=== PATIENT | male | born 1945 | race Caucasian/White ===

== ENCOUNTER 2020-01-06 08:06 | Inpatient (IN) | payer OTHER ==
[~2020-01-06] VITALS: Ht 180.3 cm; Wt 124.0 kg
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
[2020-01-06] MEDS ORDERED: MORPHINE SULFATE 4 MG/ML VIAL. IV ONE (09:45)
[2020-01-06 10:04] LABS: BASO % 0 % (0-3); EOS # 0.1 x10^3/uL (0.0-0.7); EOS % 1 % (0-3); HEMATOCRIT 46.5 % (39.0-53.0); HEMOGLOBIN 15.6 g/dL (13.0-17.5); LYMPH % 9 % (24-48); MEAN CORPUSCULAR HEMOGLOBIN 30 pg (25-35); MEAN CORPUSCULAR HGB CONC 34 g/dL (31-37); MEAN CORPUSCULAR VOLUME 88 fL (79-100); MONO % 10 % (0-9); NEUT # 8.2 x10^3/uL (1.8-7.7); NEUT % 80 % (31-73); PLATELET COUNT 160 x10^3/uL (140-400); RED BLOOD COUNT 5.29 x10^6/uL (4.30-5.70); RED CELL DISTRIBUTION WIDTH 14.8 % (11.5-14.5); WHITE BLOOD COUNT 10.3 x10^3/uL (4.0-11.0)
[2020-01-06 10:24] LABS: CALCIUM 8.8 mg/dL (8.5-10.1); CREATININE 1.1 mg/dL (0.7-1.3); GFR 65.6; POTASSIUM 4.1 mmol/L (3.5-5.1)
[2020-01-06 10:30] LABS: ALBUMIN 3.8 g/dL (3.4-5.0); ALBUMIN/GLOBULIN RATIO 1.3 (1.0-1.7); TOTAL BILIRUBIN 0.5 mg/dL (0.2-1.0); TOTAL PROTEIN 6.7 g/dL (6.4-8.2)
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
[2020-01-06] MEDS ORDERED: IV NORMAL SALINE 500ML BAG 500 ML IV ONE (12:00)
[2020-01-06] MEDS ORDERED: CONTRAST GIVEN. MC PRN (12:15)
[2020-01-06] MEDS ORDERED: IOHEXOL 300 MG/ML 100ML VIAL. IV ONE (12:30)
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
[2020-01-06 14:10] VITALS: BP 150/94
--- NOTE | 2020-01-06 14:42 | EKG ---
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
[2020-01-06] MEDS ORDERED: BISO1TAB44 PO (15:36)
[2020-01-06] MEDS ORDERED: CLON0.12 PO (15:36)
[2020-01-06] MEDS ORDERED: TRAZ-118 PO (15:36)
[2020-01-06] MEDS ORDERED: SERT100T PO (15:36)
[2020-01-06] MEDS: oxyCODONE/APAP 5/325 1 TAB TABLET PO PRN ×2 (17:35→22:19)
[2020-01-06] MEDS: IV NORMAL SALINE 1000ML BAG 1,000 ML IV SCH (17:36)
[2020-01-06 19:01] VITALS: BP 165/77
[2020-01-06] MEDS: fentaNYL PF VIAL 100 MCG/2 ML VIAL IVP PRN ×2 (19:05→22:20)
[2020-01-06] MEDS: traZODone 50 MG TABLET. PO SCH (22:19)
[2020-01-06 22:46] VITALS: BP 128/83
[2020-01-07] VITALS (9 sets, daily range): BP systolic 123–162; BP diastolic 67–80
[2020-01-07] MEDS: IV NORMAL SALINE 1000ML BAG 1,000 ML IV SCH (03:16)
[2020-01-07] MEDS: fentaNYL PF VIAL 100 MCG/2 ML VIAL IVP PRN ×2 (04:10→20:02)
[2020-01-07] MEDS: oxyCODONE/APAP 5/325 1 TAB TABLET PO PRN ×3 (04:10→20:01)
[2020-01-07] MEDS: hydroCHLOROthiazide 25 MG TABLET PO SCH (08:40)
[2020-01-07] MEDS: clonazePAM 0.5 MG TABLET PO SCH (08:40)
[2020-01-07] MEDS: SERTRALINE 50 MG TABLET. PO SCH (08:40)
[2020-01-07] MEDS: ATENOLOL 25 MG TABLET. PO SCH (08:41)
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
[2020-01-07] MEDS: traZODone 50 MG TABLET. PO SCH (20:01)
[2020-01-08 03:00] VITALS: BP 123/70
[2020-01-08 07:00] VITALS: BP 147/78
--- NOTE | 2020-01-08 07:52 | RAD ---
PA and lateral chest. HISTORY: Chest pain PA and lateral views were taken of the chest. There is mild atelectasis in the right lung base along the diaphragm. There is elevation of the right diaphragm. Heart is normal in size. There is no pleural effusion. IMPRESSION: 1. Mild basilar atelectasis. 2. Elevated right diaphragm. 3. No other infiltrates. Electronically signed by: Santiago Neil MD (01/08/2020 7:49 AM) [facility]
[2020-01-08] MEDS: hydroCHLOROthiazide 25 MG TABLET PO SCH (08:14)
[2020-01-08 08:15] VITALS: BP 147/78
[2020-01-08] MEDS: clonazePAM 0.5 MG TABLET PO SCH (08:15)
[2020-01-08] MEDS: ATENOLOL 25 MG TABLET. PO SCH (08:15)
[2020-01-08] MEDS: SERTRALINE 50 MG TABLET. PO SCH (08:15)
[2020-01-08] MEDS ORDERED: OXYC1TAB15 PO (09:58)
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
--- NOTE | 2020-01-08 11:16 | NUR ---
Discharge Note: ACRLITO BRAGG [facility] Discharge instructions and discharge home medications reviewed with Patient and a copy given. All questions have been answered and understanding verbalized. The following instructions and handouts were given: chest contusion, ACS, and cardiac diet. Discontinued iv line and catheter intact. Patient discharged home with self-care via private vehicle.
--- NOTE | 2020-01-09 13:51 | EKG ---
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
== END 2020-01-08 11:19 | disposition home or self-care (01) | DRG 313 ==
LOC: ER 08:06 → 2 SOUTH 11:50 → OBSVTOIN 01-07 20:26
PROVIDERS: ADMIT Internal Medicine; ATTEND Internal Medicine
DX: R07.89 Other chest pain (principal); C18.9 Malignant neoplasm of colon, unspecified; E66.9 Obesity, unspecified; Z68.38 Body mass index [BMI] 38.0-38.9, adult; G62.0 Drug-induced polyneuropathy; T45.1X5A Adverse effect of antineoplastic and immunosuppressive drugs, initial encounter; Y92.89 Other specified places as the place of occurrence of the external cause; V89.2XXA Person injured in unspecified motor-vehicle accident, traffic, initial encounter; Y92.410 Unspecified street and highway as the place of occurrence of the external cause; Z82.49 Family history of ischemic heart disease and other diseases of the circulatory system; Z90.79 Acquired absence of other genital organ(s); Z90.49 Acquired absence of other specified parts of digestive tract; M25.78 Osteophyte, vertebrae; I10 Essential (primary) hypertension; C61 Malignant neoplasm of prostate; E78.5 Hyperlipidemia, unspecified; M48.061 Spinal stenosis, lumbar region without neurogenic claudication
CPT/HCPCS: 36415; 70450; 71045; 71046; 71250; 72125; 74177; 80053; 84484; 85025; 93005; 96361; 96374; 99285; G0238; G0378; G0379; J2270; J3010; J7030; J7040; Q9967; 97530-GO